=== PATIENT | male | born 1955 | race Caucasian/White ===

== ENCOUNTER 2021-12-30 00:20 | Day surgery (SDC) | payer OTHER, SELFPAY ==
[2021-12-21 14:22] VITALS: BMI 34.3
--- NOTE | 2021-12-29 21:27 | PM.HPGS ---
History of Present Illness History of Present Illness Consent: Risks, benefits, and alternatives have been discussed and questions answered. Patient agrees to proceed with procedure. Chief complaint: neoplasm screening Narrative: Enmanuel oCello is a 66 year old male referred for colon cancer screening. Review of Systems Review of Systems: All systems reviewed & are unremarkable except as noted in HPI and below PMFSH Family History Family History Sibling Family history of diabetes mellitus in first degree relative Family history of coronary artery disease Social History Social History Smoking status: Never smoker Second hand tobacco smoke exposure: No Alcohol intake: current Drinks per week: 6 Substance use: never Substance use type: does not use Living arrangements: with family Gender identity (if verbalized by the patient): Male Spiritual care concerns: No Meds Home Medications and Allergies Home Medications Medication Instructions Recorded Confirmed Type lisinopril 20 1 tablet PO DAILY #90 tablet 11/10/20 12/30/21 Rx mg-hydrochlorothiazide 25 mg tablet Allergies Allergy/AdvReac Type Severity Reaction Status Date / Time No Known Allergies Allergy Verified 12/30/21 06:22 Exam Resp: Auscultation: clear to auscultation bilaterally Cardio: Rate: regular rate Rhythm: regular rhythm GI: GI Palp: Yes Soft to palpation and No Tenderness to palpation present (GI) Assessment and Plan Assessment and plan (1) Colon cancer screening: Code(s): Z12.11 - Encounter for screening for malignant neoplasm of colon Status: Acute Assessment and Plan: Colonoscopy with possible biopsy or polypectomy or cautery or injection of substances.
[2021-12-30 06:13] VITALS: BP 142/69; PULSE 69; RESP 16; TEMP 36.2; O2SAT 99; BMI 34.7
[2021-12-30] MEDS: LACTATED RINGERS 1,000 ML 150 ML IV CONT (06:33)
--- NOTE | 2021-12-30 07:13 | P.PNAN_ITS ---
Anes - Initial Pre Proc Eval Procedure: Operation Date: 12/30/21 07:30 Proposed Procedures p Screening Colonoscopy - Sidney Nunez MD Date/Time: 12/30/21 07:13 Surgeon: Sidney uNnez MD Pre Op Diagnosis: neoplasm screening Patient Data Age: 66 Gender: M Height: 1.85 m Weight: 119.5 kg Last Vital Signs Temp 36.2 C L 12/30/21 06:13 Pulse 69 12/30/21 06:13 Resp 16 12/30/21 06:13 BP 142/69 H 12/30/21 06:13 Pulse Ox 99 12/30/21 06:13 Allergies Allergy/AdvReac Type Severity Reaction Status Date / Time No Known Allergies Allergy Verified 12/30/21 06:22 Home Medications Medication Instructions Recorded Confirmed Type lisinopril 20 1 tablet PO DAILY #90 tablet 11/10/20 12/30/21 Rx mg-hydrochlorothiazide 25 mg tablet Patient hx anesthesia problems: none Family hx anesthesia problems: none Results Review: All pre-operative results and documents have been reviewed as part of the pre-operative evaluation. [facility] Past Medical History Medical History (Updated 12/30/21 @ 07:15 by Gokul Villalta MD) Essential hypertension Obesity Pure hyperglyceridemia Family History Family History Sibling Family history of diabetes mellitus in first degree relative Family history of coronary artery disease Social History Social History Smoking status: Never smoker Second hand tobacco smoke exposure: No Alcohol intake: current Drinks per week: 6 Substance use: never Substance use type: does not use Living arrangements: with family Gender identity (if verbalized by the patient): Male Spiritual care concerns: No Anes - Eval Final PreProcedure Day of Procedure 12/30/21 07:13 Patient weight: obese Heart: regular rate and rhythm Lungs: clear to auscultation and normal air movement Airway: Mallampati scale class II Neurological: alert and oriented Last oral intake: >/= 8 hours ASA classification: III Emergent: no Anesthetic plan: proceed Anesthesia type and monitoring: general GIVS Results Review: All pre-operative results and documents have been reviewed as part of the pre-operative evaluation. Informed Consent: The patient's anesthetic plan and its attendant risks and benefits were discussed with the patient/family/POA. Questions were solicited and answers provided to the satisfaction of the patient/family/POA.
[2021-12-30 07:40] VITALS: BP 107/64; PULSE 60; O2SAT 100
[2021-12-30 07:50] VITALS: BP 112/70; PULSE 60; RESP 20; O2SAT 100
[2021-12-30 08:00] VITALS: BP 129/76; PULSE 59; RESP 18; O2SAT 100
== END 2021-12-30 08:07 | disposition home or self-care (01) ==
PROVIDERS: PCP Family Medicine; Visit Provider Internal Medicine Gastroenterology
PROC: 0DJD8ZZ Inspection of Lower Intestinal Tract, Via Natural or Artificial Opening Endoscopic (ICD-10-PCS; CPT 45378; principal; 2021-12-30 07:30)
DX: Z12.11 Encounter for screening for malignant neoplasm of colon (principal); D12.3 Benign neoplasm of transverse colon; I10 Essential (primary) hypertension; E66.9 Obesity, unspecified; Z68.34 Body mass index [BMI] 34.0-34.9, adult
CPT/HCPCS: 45385; 88305; J2704; J7120

== ENCOUNTER 2023-11-14 13:21 | Emergency (ER) | payer OTHER, SELFPAY ==
[2023-11-14] VITALS (61 sets, daily range): BP systolic 117–184; BP diastolic 64–89; PULSE 63–107; RESP 7–56; TEMP 36.6–36.8; O2SAT 97–100
--- NOTE | ~2023-11-14 | CT_ITS ---
EXAMINATION: CT thoracic lumbar wo con DATE: 11/14/2023 17:41 INDICATION: Back pain. Fall. TECHNIQUE: Computed tomography (CT) of the thoracic and lumbar spine was performed without intravenou s contrast. Automated exposure control and iterative reconstruction technique were employed. The dose -length product was 2311.96 mGy-cm. COMPARISON: None FINDINGS: CT THORACIC SPINE: There is a small left pleural effusion. There are old healed right rib fractures. There is mild chronic anterior wedging of T6-T11 vertebral bodies. There is mildly decreased disc hei ght at T3-T4. There is mild moderately decreased disc height from T4-T5 through T11-T12 with bridging endplate osteophytes, consistent with diffuse idiopathic skeletal hyperostosis (DISH). There is mult ilevel mild to moderate facet joint hypertrophy. There is mild neural foraminal stenosis at multiple levels bilaterally. There is mild central canal stenosis at T10-T11. CT LUMBAR SPINE: Bone alignment is normal. There are Schmorl's nodes at multiple levels. There is mil dly decreased disc height at L4-L5. Osseous central spinal canal is developmentally small. The follow ing disc levels are specifically discussed: L1-L2: The disc does not extend beyond the endplate margin. There is moderate right and mild left fac et joint osteoarthritis. There is no neural foraminal stenosis. There is no central canal stenosis. L2-L3: The disc is bulging. There is severe bilateral facet joint osteoarthritis. There is mild bilat eral neural foraminal stenosis. There is mild central canal stenosis. L3-L4: The disc is bulging. There is moderate right and severe left facet joint osteoarthritis. There is mild right and moderate left neural foraminal stenosis. There is mild central canal stenosis. L4-L5: The disc is bulging. There is severe bilateral facet joint osteoarthritis. There is moderate b ilateral neural foraminal stenosis. There is severe central canal stenosis. L5-S1: The disc is bulging. There is severe bilateral facet joint osteoarthritis. There is mild bilat eral neural foraminal stenosis. There is mild central canal stenosis. IMPRESSION: 1. No fracture. 2. Mild thoracic spondylosis and moderate lumbar spondylosis. 3. DISH. 4. Small left pleural effusion. Reviewed, dictated and finalized at location E. CONCIERGE
--- NOTE | ~2023-11-14 | CT_ITS ---
EXAMINATION: CT cervical spine wo con DATE: 11/14/2023 17:40 INDICATION: Head injury. TECHNIQUE: Computed tomography (CT) of the cervical spine was performed without intravenous contrast. Automated exposure control and iterative reconstruction technique were employed. The dose-length pro duct was 615.54 mGy-cm. COMPARISON: None FINDINGS: There is a small left pleural effusion. Bone alignment is normal. Vertebral body heights ar e normal. There is mildly decreased disc height from C2-C3 through C5-C6 and severely decreased disc height at C6-C7. There is developmental osseous central canal stenosis. The following disc levels are specifically discussed: C2-C3: There is severe bilateral uncovertebral joint osteoarthritis. There is severe bilateral facet joint osteoarthritis. There is mild bilateral neural foraminal stenosis. There is mild central canal stenosis. C3-C4: There is moderate right and severe left uncovertebral joint osteoarthritis. There is severe bi lateral facet joint osteoarthritis. There is mild right and moderate left neural foraminal stenosis. There is mild central canal stenosis. C4-C5: There is moderate bilateral uncovertebral joint osteoarthritis. There is moderate bilateral fa cet joint osteoarthritis. There is mild bilateral neural foraminal stenosis. There is mild central ca nal stenosis. C5-C6: There is moderate right and severe left uncovertebral joint osteoarthritis. There is moderate right and mild left facet joint osteoarthritis. There is mild bilateral neural foraminal stenosis. Th ere is mild central canal stenosis. C6-C7: There is severe bilateral uncovertebral joint osteoarthritis. There is moderate bilateral face t joint osteoarthritis. There is mild bilateral neural foraminal stenosis. There is mild central kandace l stenosis. C7-T1: There is mild bilateral uncovertebral joint osteoarthritis. There is severe bilateral facet gregorio int osteoarthritis. There is mild bilateral neural foraminal stenosis. There is mild central canal st enosis. IMPRESSION: 1. No fracture. 2. Severe cervical spondylosis. Reviewed, dictated and finalized at location E. BLOCKER
--- NOTE | ~2023-11-14 | CT_ITS ---
EXAMINATION: CT brain wo con DATE: 11/14/2023 17:40 INDICATION: Head injury. TECHNIQUE: Computed tomography (CT) of the head was performed without intravenous contrast. The mA wa s adjusted according to patient size. Iterative reconstruction technique was employed. The dose-lengt h product was 681.00 mGy-cm. COMPARISON: None FINDINGS: There are scattered areas of low attenuation in the cerebral white matter, which is within normal limits for the patient's age. There is a small infarct in right parietal lobe. There is no int racranial hemorrhage, acute infarction, or abnormal intracranial mass lesion. The ventricles are norm al in size. The orbits are normal. There is mucosal thickening in the paranasal sinuses. The mastoid air cells are normal. IMPRESSION: 1. 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 Reviewed, dictated and finalized at location E. SMITH
--- NOTE | ~2023-11-14 | CT_ITS ---
EXAMINATION:CT diagnostic chest wo con DATE: 11/14/2023 17:41 INDICATION: Left rib pain. Upper back pain. Fall. TECHNIQUE: Computed tomography (CT) of the chest was performed without intravenous contrast. Automate d exposure control and iterative reconstruction technique were employed. The dose-length product (DLP ) was 1009.36 mGy-cm. COMPARISON: None. FINDINGS: There is a small left pleural effusion. There is mild atelectasis bilaterally. The heart si ze is normal. There are coronary artery calcifications. No pericardial effusion. There is ectasia of ascending aorta measuring 4.6 cm. There are fractures of left first-ninth ribs. There are old healed right rib fractures. IMPRESSION: 1. Acute fractures of left first-ninth ribs. 2. Small left pleural effusion. 3. Ectasia of ascending aorta measuring 4.6 cm. Reviewed, dictated and finalized at location E. NDS CREW SUPERVISOR
--- NOTE | ~2023-11-14 | XR_ITS ---
EXAMINATION: XR hip RT 2V w AP pelvis DATE: 11/14/2023 17:45 INDICATION: Right hip pain. Fall. TECHNIQUE: An anteroposterior view of the pelvis and 2 views of right hip were obtained. COMPARISON: None. FINDINGS: Bone alignment is normal. No fracture. There is mild osteoarthritis of hips. There is moder ate lumbar spondylosis. IMPRESSION: 1. No fracture. 2. Mild osteoarthritis of the hips. Reviewed, dictated and finalized at location E. [facility]
--- NOTE | 2023-11-14 17:15 | ED.FALL ---
HPI - Fall General Chief Complaint: Fall Stated Complaint: FALL/ HIP PAIN Time Seen by Provider: 11/14/23 16:11 History of Present Illness HPI Narrative: Patient is a 68-year-old male presenting after falling on ice. Landed on his right hip and left shoulder. Complains of right hip pain when he tries to walk on it. States that he also has left-sided rib pain that goes into his left upper back. Thinks he struck his head but did not lose consciousness. No numbness or weakness. No difficulty breathing. No abdominal pain. Related Data Allergies Allergy/AdvReac Type Severity Reaction Status Date / Time No Known Allergies Allergy Verified 11/14/23 13:27 Review of Systems Review of Systems: All systems reviewed & are unremarkable except as noted in HPI and below PMFSH Past Medical History Medical History Essential hypertension HLD (hyperlipidemia) Obesity Pure hyperglyceridemia Family History Family History Sibling Family history of diabetes mellitus in first degree relative Family history of coronary artery disease Social History Social History Smoking status: Former smoker Second hand tobacco smoke exposure: No Alcohol intake: current Drinks per week: 12 Substance use: never Substance use type: does not use Living arrangements: with family Occupation/Education: occupation Gender identity (if verbalized by the patient): Male Spiritual care concerns: No Exam Narrative: GENERAL: Nontoxic, no acute distress HEAD: Normocephalic, atraumatic. EYES: PERRLA and EOMI. ENT: grossly unremarkable NECK: Supple. CHEST: Clear to auscultation. No respiratory distress. HEART: Regular rate and rhythm ABDOMEN: Soft, nontender, nondistended EXTREMITIES: R hip tender with palpation; R hip flexion limited 2/2 pain, neurovascularly intact SKIN: Warm, dry, no rash. NEURO: No focal deficits. Alert and oriented x3. PSYCH: Normal mood and affect. Course Vital Signs Vital signs: Vital Signs Temperature 98 F 11/14/23 13:21 Pulse Rate 63 11/14/23 13:21 Respiratory Rate 20 11/14/23 13:21 Pulse Oximetry 97 11/14/23 13:21 Oxygen Delivery Room Air 11/14/23 13:21 Temperature 98.3 F 11/14/23 16:42 Pulse Rate 74 11/15/23 00:00 Respiratory Rate 14 11/15/23 00:00 Blood Pressure 172/77 H 11/14/23 23:16 Pulse Oximetry 98 11/15/23 00:00 Oxygen Delivery Room Air 11/14/23 13:21 MDM - Fall MDM Narrative Medical decision making narrative: 68-year-old male presenting after slipping on ice. Vitals are stable. Exam remarkable for the above. CT brain and spine without acute injuries. CT chest shows fractures of the 1st through 9th left ribs with a small pleural effusion. No pneumothorax. X-ray of the right hip shows no fractures. Patient requires transfer to a trauma center. I spoke with Dr. Rayo at [facility] who has accepted him for ER to ER transfer. patient and his have been updated, they are agreeable with this plan. Differential Diagnosis Differential diagnosis: Likely other ( Fall, rib fractures, hip fracture) Medical Records Attestation: I reviewed the patient's medical records. Imaging Data Radiologist's impression: ITS Impressions Head CT 11/14/23 18:05 IMPRESSION: 1. 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 Cervical Spine CT 11/14/23 18:07 IMPRESSION: 1. No fracture. 2. Severe cervical spondylosis. Thoracic/Lumbar Spine CT 11/14/23 18:12 IMPRESSION: 1. No fracture. 2. Mild thoracic spondylosis and moderate lumbar spondylosis. 3. DISH. 4. Small left pleural effusion. Chest CT 11/14/23 18:21 IMPRESSION: 1. Acute fractures of left first-ninth ribs. 2. Small left pleural effusion. 3. Ectasia of ascending aorta measuring 4.6 cm.
[2023-11-14] MEDS: MORPHINE SULFATE (*CRX) 4 MG/ML INJ IV PUSH ×2 (17:24→19:59)
--- NOTE | 2023-11-14 21:27 | PC.NURSE ---
Report to Romelia CALLAHAN RN.
[2023-11-15] VITALS: PULSE 74; RESP 14; O2SAT 98
[2023-11-15] MEDS: MORPHINE SULFATE (*CRX) 4 MG/ML INJ IV PUSH (00:26)
== END 2023-11-15 00:40 | disposition short-term general hospital (02) ==
PROVIDERS: Emergency Provider Emergency Medicine; PCP Family Medicine
DX: S79.911A Unspecified injury of right hip, initial encounter (principal); S22.42XA Multiple fractures of ribs, left side, initial encounter for closed fracture; I10 Essential (primary) hypertension; E78.5 Hyperlipidemia, unspecified; E66.9 Obesity, unspecified; Z68.35 Body mass index [BMI] 35.0-35.9, adult; Z87.891 Personal history of nicotine dependence; M47.812 Spondylosis without myelopathy or radiculopathy, cervical region; M47.816 Spondylosis without myelopathy or radiculopathy, lumbar region; M47.814 Spondylosis without myelopathy or radiculopathy, thoracic region; M48.14 Ankylosing hyperostosis [Forestier], thoracic region; I77.819 Aortic ectasia, unspecified site; M16.0 Bilateral primary osteoarthritis of hip; W00.0XXA Fall on same level due to ice and snow, initial encounter
CPT/HCPCS: 70450; 71250; 72125; 72128; 72131; 73502; 96374; 96376; 99285; J2270

== ENCOUNTER 2025-06-25 16:45 | Emergency (ER) | payer OTHER, SELFPAY ==
[2025-06-25] VITALS (11 sets, daily range): BP systolic 112–123; BP diastolic 59–69; PULSE 58–73; RESP 12–16; TEMP 36.4–36.6; O2SAT 97–100
--- NOTE | ~2025-06-25 | XR_ITS ---
XR elbow LT min 3V Indication: Left elbow pain Procedure: 3 views left elbow Comparison: No prior studies for comparison. Findings: No fracture, subluxation or dislocation. Prominent enthesophyte originating from the olecranon process. There is ossific density at the medial humeral epicondyle, likely related to remote injury. Impression: 1: No acute fracture. Reviewed, dictated and finalized at location O. Impression: 1: No acute fracture.
--- NOTE | ~2025-06-25 | CT_ITS ---
EXAMINATION: CT BRAIN W/O DATE: 06/25/2025 17:34 INDICATION: Status post fall. Head injury. TECHNIQUE: Computed tomography (CT) of the head was performed without intravenous contrast. The dose-length product was 548.31 mGy-cm. Automated exposure control and iterative reconstruction technique were employed. COMPARISON: No prior studies for comparison. FINDINGS: There are scattered mild periventricular and subcortical white matter changes, most likely related to small vessel ischemic disease (microangiopathy). Small chronic left frontal lobe infarction. No ventriculomegaly or midline shift. Midline sagittal images demonstrate a normal corpus callosum, craniovertebral junction and sella turcica. Basilar cisterns are patent. There is mucosal thickening of the ethmoid sinuses. No significant mastoid effusion. No depressed skull fractures. IMPRESSION: 1. No acute intracranial abnormality. Reviewed, dictated and finalized at location O.
--- NOTE | ~2025-06-25 | XR_ITS ---
XR wrist LT min 3V Indication: Left wrist pain Procedure: 4 views left wrist Comparison: No prior studies for comparison. Findings: There is a small ossific density dorsal to the carpal bones on the lateral view, suspicious for triquetral fracture. 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 Impression: 1: Possible triquetral avulsion fracture, age indeterminate. Correlate for point tenderness. Reviewed, dictated and finalized at location O. Impression: 1: Possible triquetral avulsion fracture, age indeterminate. Correlate for poin t tenderness.
--- NOTE | ~2025-06-25 | CT_ITS ---
EXAMINATION: CT facial & cervical spine wo DATE: 06/25/2025 17:34 INDICATION: Status post fall. For head laceration. TECHNIQUE: Computed tomography (CT) of the maxillofacial region and cervical spine was performed without intravenous contrast. The dose-length product (DLP) was 548.31 mGy-cm. Automated exposure control and iterative reconstruction technique were employed. Automated exposure control and iterative reconstruction technique were employed. COMPARISON: None FINDINGS: MAXILLOFACIAL CT: There is left frontal soft tissue swelling with multiple punctate foreign bodies and subcutaneous gas, consistent with laceration. There is left periorbital soft tissue swelling. No post septal defects. No evidence for orbital blowout fracture. No significant mucosal thickening of the paranasal sinuses. No acute facial fracture. There is atherosclerosis of the carotid arteries. CERVICAL SPINE CT: Normal cervical alignment. There is moderate disc narrowing and endplate degenerative change at C6-7. No acute fracture, subluxation or dislocation. No evidence for perched facet. Craniovertebral junction is normal. Odontoid process is normal. There is multilevel uncinate hypertrophy. Lung apices are normal. IMPRESSION: 1. Left frontal/periorbital scalp swelling with associated punctate foreign bodies and subcutaneous gas, consistent with laceration. 2: No acute abnormality of the cervical spine or facial bones. Reviewed, dictated and finalized at location O. IMPRESSION: 1. Left frontal/periorbital scalp swelling with associated punctate foreign bod ies and subcutaneous gas, consistent with laceration. 2: No acute abnormality of the cervical spine or facial bones.
--- OUTSIDE RECORDS SUMMARY | 2025-06-25 16:47 | XMS_ITS | Encounter Summary ---
Author Organization [facility] Address [address] [place] [address] Care Team Providers Care Pump Servicer Name Role Phone Gonzalo Downey MD Unavailable [phone] Rayray Stringer MD Primary Care Provider [phone] Encounter Details Date Type Department Care Team (Late st Contact Info) Description 06/08/2022 Lab Requisition [facility] [address] [place] [id number] Chris Pyle MD [address] [place] [address] Social History Tobacco Use Types Packs/Day Years Used Date Smoking Tobacco: Never Smokeless Tobacco: Never Alcohol Use Standard Drinks/Week Comments Yes 4 (1 standard drink = 0.6 oz pur e alcohol) Sex and Gender Information Value Date Recorded Sex Assigned at Not on file Legal Sex Male 10:21 AM CDT Gender Identity Not on file Sexual Orientation Not on file documented as of this encounter Functional Status * Is person deaf or have serious hearing difficulty? Answer Date of Assessment Author No 07/28/2018 11:08 AM Frances Hendrickson APRN-CNP * Is person blind or have serious difficulty seeing? Answer Date of Assessment Author No 07/28/2018 11:08 AM Frances Hendrickson APRN-CNP * Does person have serious difficulty walking/climbing stairs? Answer Date of Assessment Author No 07/28/2018 11:08 AM CDT Frances Soler, NEUROLOGY TECHNICIAN-CARTOGRAPHIC ENGINEER * Does person have difficulty dressing/bathing? Answer Date of Assessment Author No 07/28/2018 11:08 AM CDT Frances Soler, NEUROLOGY TECHNICIAN-CARTOGRAPHIC ENGINEER * Does person have difficulty doing errands alone? Answer Date of Assessment Author No 07/28/2018 11:08 AM CDT Frances Soler, NEUROLOGY TECHNICIAN-CARTOGRAPHIC ENGINEER documented as of this encounter Mental Status * Does person have difficulty concentrating/remembering/making decisions? Answer Entry Date Author No 07/28/2018 11:08 AM CDT Frances Soler, NEUROLOGY TECHNICIAN-CARTOGRAPHIC ENGINEER documented in this encounter Plan of Treatment Not on file documented as of this encounter Procedures Procedure Name Priority Date/Time Associated Diagnosis Comments DERMATOPATHOLOGY Routine 06/08/2022 12:0 0 AM CDT documented in this encounter Results * DERMATOPATHOLOGY (06/08/2022 12:00 AM CDT) Case Report Dermatopathology Report Case: [id number] Authorizing Provider: Chris Pyle MD Collected: 06/08/2022 12:00 AM Ordering Location: [facility] Received: 06/08/2022 04:18 PM Pathologist: Juwan Walters MD Specimen: Skin, left malar cheek 2 2:23 PM CDT DERMATOPATHOLOGY LABORATORY Final Diagnosis Specimen A. SKIN, left malar cheek: SQUAMOUS CELL CARCINOMA, WELL DIFFERENTIATED (C44.329) OVERLYING CUTANEOUS HORN (L85.8) 2 2:23 PM CDT DERMATOPATHOLOGY LABORATORY at 1423 CDT Clinical History BCCA vs. SCCA. Path# [id number] 2 2:23 PM CDT DERMATOPATHOLOGY LABORATORY Gross Description Specimen A: Received is one formalin filled container labeled with the patient's name and designated left malar cheek. The specimen consists of a shave biopsy measuring [id number]. Jar 0. 2 2:23 PM CDT DERMATOPATHOLOGY LABORATORY Microscopic Description Specimen A. SKIN, left malar cheek: Arising in the epidermis and extending into the dermis there are irregularly shaped aggregates of keratinocytes showing evidence of premature cornification. There is a column of marked compact hyperkeratosis. 2 2:23 PM CDT DERMATOPATHOLOGY LABORATORY Disclaimer An external and internal positive and negative controls are appropriate for the histochemical, immunohistochemical and immunofluorescence stain(s) in this case (if any), except where stated explicitly. The performance characteristics of the stain(s) cited in this report were developed and its performance characteristic determined by the Dermatopathology Laboratory at [facility], directed by Dr. Bruce Walters. These tests need not be, and therefore are not, approved by the [place] Food and Drug Administration. The tests are used for clinical purposes. Billing Codes Specimen Charges Stain Charges 29499 1 2 2:23 PM CDT DERMATOPATHOLOGY LABORATORY Embedded Images 2 2:23 PM CDT DERMATOPATHOLOGY LABORATORY Pathology/Cytolog y TISSUE SPECIMEN FROM SKIN / Unknown 06/08/2022 06/08/2022 4:18 PM CDT us Chris Pyle MD LAB - PATHOLOGY/CYTOLOGY ORDER JOHN Final Result DERMATOPATHOLOGY LABORATORY [facility] - Department of Dermatology [facility] [address] [place] [address], [address] [phone] documented in this encounter Visit Diagnoses Not on filedocumented in this encounter Care Teams Pump Servicer Relationship Specialty Start Date End Date Rayray Stringer MD [address] [place] [address] PCP - General 01/01/22 [place] [address] [id number] Orthopedic Surgery 05/23/15 documented as of this encounter
--- NOTE | 2025-06-25 16:55 | ED_ITS ---
HPI - Wound/Laceration General Chief Complaint: Wound/Laceration <JACINDA Lynch Last Filed: 06/25/25 17:02> Stated Complaint: lac <JACINDA yLnch Last Filed: 06/25/25 17:02> Time Seen by Provider: 06/25/25 16:56 <JACINDA Lynch Last Filed: 06/25/25 17:02> Focused HPI: Patient is a 69 y/o male who presents to the ED with c/o fall. Patient's at bedside assisted in providing information. Reports patient tripped walking down concrete steps towards their pool and hit his face/forehead against the concrete retaining wall. Patient denies any LOC. He also sustained abrasions to his L wrist, L knee, blaise elbows. Complains of pain to his left wrist, left elbow, neck. He is not on any anticoagulation. Tetanus UTD. GENERAL: Well-appearing, obese with BMI of 34.0, and in no acute distress. HEAD: Normocephalic. Abrasions to L facial cheek, L periorbital region with s welling/erythema to L periorbital region. Large bandaging to forehead. NECK: Mild TTP over midline cervical region CHEST: Clear to auscultation. ?No respiratory distress. HEART: Regular rate and rhythm.? MSK: Small linear abrasion to L ventral wrist, minimal tenderness. Mild TTP to L lateral elbow. NEURO: ?Alert and oriented x3. Patient screened in triage and initial orders placed.? ?Additional care and disposition to be based upon?diagnostic testing and treatment. <JACINDA Lynch Last Filed: 06/25/25 17:02> Source: patient and family <JACINDA Lynch Last Filed: 06/25/25 17:02> Mode of arrival: ambulatory <JACINDA Lynch Last Filed: 06/25/25 17:02> Limitations: no limitations <JACINDA Lynch Last Filed: 06/25/25 17:02> History of Present Illness HPI narrative: Agree with the above triage note. <Maday Ludwig PA-C - Last Filed: 06/25/25 23:03> Related Data Allergies/Adverse Reactions: Allergies Allergy/AdvReac Type Severity Reaction Status Date / Time No Known Allergies Allergy Verified 06/25/25 16:49 <Julianna Angeles PA-C - Last Filed: 06/25/25 17:02> Review of Systems Review of Systems: All systems reviewed & are unremarkable except as noted in HPI and below <Maday Ludwig PA-C - Last Filed: 06/25/25 23:03> PMFSH Past Medical History Medical History: Medical History HLD (hyperlipidemia) Obesity Essential hypertension Pure hyperglyceridemia <Julianna Angeles PA-C - Last Filed: 06/25/25 17:02> Family History Family History: Family History Sibling Family history of diabetes mellitus in first degree relative Family history of coronary artery disease <Julianna Angeles PA-C - Last Filed: 06/25/25 17:02> Social History Social History: Social History Smoking status: Former smoker Second hand tobacco smoke exposure: No Alcohol intake: current Drinks per week: 12 Substance use: never Substance use type: does not use Living arrangements: with family Occupation/Education: occupation Gender identity (if verbalized by the patient): Male Spiritual care concerns: No <Julianna Angeles PA-C - Last Filed: 06/25/25 17:02> Exam Narrative: GENERAL: Well-appearing, well-nourished, and in no acute distress. HEAD: Normocephalic EYES: PERRLA and EOMI. 6 cm large gaping laceration to the left eyebrow, bleeding controlled. Exposed subcutaneous tissue, does not appear to have any muscle involvement. No active bleeding. Visible vasculature is intact. Small scattered pieces of debris at the base of the wound. Surrounding ecchymosis and edema that extends to the left upper lid with no apparent ocular involvement or ocular pain. Patient is able to raise eyebrows and frown ENT: Nares clear, no rhinorrhea or epistaxis. Mucous membranes moist. NECK: No midline cervical spinous tenderness, crepitus, step-offs or deformities BACK: No midline thoracolumbar spinous tenderness, crepitus, step-offs or deformities CHEST: Clear to auscultation. No respiratory distress. No tenderness to chest wall HEART: Regular rate and rhythm. No murmur heard. Normal peripheral pulses. ABDOMEN: Soft, nontender, nondistended, normal active bowel sounds. EXTREMITIES: LUE: Superficial abrasion to the ventral aspect of the left wrist with no active bleeding, no significant tenderness to palpation of the forearm, wrist or hand. Mild tenderness to the proximal radius over the elbow with minimal amount of edema. No obvious deformity. Full active passive range of motion of all extremities with no tenderness remainder of extremities. Radial and DP pulses are 2+. Sensation intact throughout. SKIN: Superficial abrasions to the left tib-fib with no active bleeding, deep structures or foreign bodies visualized. No tenderness to extremities. NEURO: No focal deficits. Alert and oriented x3 <Maday Ludwig PA-C - Last Filed: 06/25/25 23:03> Course Vital Signs Vital signs: Vital Signs Temperature 97.5 F L 06/25/25 16:50 Pulse Rate 73 06/25/25 16:50 Respiratory Rate 16 06/25/25 16:50 Blood Pressure 112/59 L 06/25/25 16:50 Pulse Oximetry 97 06/25/25 16:50 Temperature 97.5 F L 06/25/25 16:50 Pulse Rate 73 06/25/25 16:50 Respiratory Rate 16 06/25/25 16:50 Blood Pressure 112/59 L 06/25/25 16:50 Pulse Oximetry 97 06/25/25 16:50 <Julianna Angeles PA-C - Last Filed: 06/25/25 17:02> Vital Signs Temperature 97.5 F L 06/25/25 16:50 Pulse Rate 73 06/25/25 16:50 Respiratory Rate 16 06/25/25 16:50 Blood Pressure 112/59 L 06/25/25 16:50 Pulse Oximetry 97 06/25/25 16:50 Temperature 97.5 F L 06/25/25 16:50 Pulse Rate 73 06/25/25 16:50 Respiratory Rate 16 06/25/25 16:50 Blood Pressure 112/59 L 06/25/25 16:50 Pulse Oximetry 97 06/25/25 16:50 <JACINDA Patten Last Filed: 06/25/25 23:03> Procedures Laceration Laceration 1: Date: 06/25/25 <JACINDA Patten Last Filed: 06/25/25 23:03> Time: 23:02 <JACINDA Patten Last Filed: 06/25/25 23:03> Site: face <JACINDA Patten Last Filed: 06/25/25 23:03> Side (If applicable): left <JACINDA Patten Last Filed: 06/25/25 23:03> Size (cm): 6 <JACINDA Patten Last Filed: 06/25/25 23:03> Description: irregular <JACINDA Patten Last Filed: 06/25/25 23:03> Local Anesthetic: lidocaine 1% and with epi <JACINDA Patten Last Filed: 06/25/25 23:03> Amount of anesthesia used (mL): 8 <JACINDA Patten Last Filed: 06/25/25 23:03> Pre-repair: wound explored, irrigated, irrigated extensively and deep structures intact <JACINDA Patten Last Filed: 06/25/25 23:03> ====== Skin Level ======: Skin layer closed with: nylon <JACINDA Patten Last Filed: 06/25/25 23:03> Size (cm): 5-0 <JACINDA Patten Last Filed: 06/25/25 23:03> Number of sutures: 6 <JACINDA Patten Last Filed: 06/25/25 23:03> Technique: simple, interrupted <Maday Ludwig PA-C - Last Filed: 06/25/25 23:03> ====== Subcutaneous Layer ======: Subcutaneous layer closed with: vicryl <JACINDA Patten Last Filed: 06/25/25 23:03> Size: 5-0 <JACINDA Patten Last Filed: 06/25/25 23:03> Number of sutures: 2 <JACINDA Patten Last Filed: 06/25/25 23:03> Technique: simple, interrupted <JACINDA Patten Last Filed: 06/25/25 23:03> ====== Muscle Layer ======: ====== Tendon Layer ======: MDM - Wound/Laceration MDM Narrative Medical decision making narrative: MSE by JOESPH in triage. <JACINDA Lynch Last Filed: 06/25/25 17:02> MSE by JOESPH in triage. 69-year-old male presents emergency department for a ground level mechanical fall that occurred prior to arrival. Patient did hit his head but did not lose consciousness. He is not anticoagulated. Vitals are stable. Exam is notable for the above. Tdap is up to date. CT brain shows no acute intracranial abnormality. CT cervical spine and facial bones shows no acute abnormality of the cervical spine and facial bones. There is a left frontal/periorbital scalp swelling with associated punctate foreign bodies and subcutaneous gas consistent with patient's laceration. X-ray of the left elbow shows no acute fracture. X- ray of the left for shows possible triquetral avulsion fracture, age indeterminate. Patient has no tenderness whatsoever to this region, likely not acute. Patient and at bedside updated on results. Wounds cleansed and dressed by nursing staff. Large laceration to the left eyebrow was anesthetized and irrigated extensively with normal saline with debris removed. Laceration closed as noted above in procedure note. Patient tolerated procedure well. Given the depth and contamination of laceration, patient started on Keflex. Discussed wound care, close follow-up with PCP, suture removal and strict ED return precautions. Patient and his are agreeable with the plan verbalized understanding. Discharged in stable condition. <Maday Ludwig PA-C - Last Filed: 06/25/25 23:03> Discharge Plan Discharge Clinical Impression: Laceration, Abrasion Head injury Qualifiers: Encounter type: initial encounter Qualified Code(s): S09.90XA - Unspecified injury of head, initial encounter Elbow sprain Qualifiers: Encounter type: initial encounter Laterality: left Qualified Code(s): S53.402A - Unspecified sprain of left elbow, initial encounter <JACINDA Lynch Last Filed: 06/25/25 17:02> Patient Disposition: Home <JACINDA Lynch Last Filed: 06/25/25 17:02> Condition: Stable <JACINDA Lynch Last Filed: 06/25/25 17:02> Instructions: Antibiotic Form, Care For Your Stitches (DC), Laceration (ED), Head Injury (DC), Abrasion (ED) <JACINDA Lynch Last Filed: 06/25/25 17:02> Additional Instructions: Please keep your wounds clean and dry. Take the antibiotics as directed. Have the stitches removed in 7 days by her primary care provider, urgent care or emergency department. Return to the emergency department if you develop surrounding redness, drainage, fever to any of your wounds or you develop altered mental status, seizures or other concerning symptoms. <JACINDA Lynch Last Filed: 06/25/25 17:02> Patient Language: Malian <JACINDA Lynch Last Filed: 06/25/25 17:02> Prescriptions: New cephalexin 500 mg capsule 500 mg PO Q6H Qty: 28 0RF No Action lisinopril 30 mg tablet 30 mg PO DAILY Qty: 90 2RF hydrochlorothiazide 25 mg tablet 25 mg PO DAILY Qty: 90 3RF <JACINDA Lynch Last Filed: 06/25/25 17:02> Follow-up/Referrals: Rayray Stringer MD [Primary Care Provider, Family Practice] <Julianna Angeles PA-C - Last Filed: 06/25/25 17:02>
[2025-06-25] MEDS: ACETAMINOPHEN 500 MG TABLET 1000 MG PO (23:17)
[2025-06-25] MEDS: CEPHALEXIN 500 MG CAPSULE PO (23:17)
== END 2025-06-25 23:24 | disposition home or self-care (01) ==
PROVIDERS: Emergency Provider Physician Assistant; PCP Family Medicine
DX: S01.122A Laceration with foreign body of left eyelid and periocular area, initial encounter (principal); S53.402A Unspecified sprain of left elbow, initial encounter; S80.812A Abrasion, left lower leg, initial encounter; S60.812A Abrasion of left wrist, initial encounter; E78.5 Hyperlipidemia, unspecified; E66.9 Obesity, unspecified; Z68.34 Body mass index [BMI] 34.0-34.9, adult; I10 Essential (primary) hypertension; Z87.891 Personal history of nicotine dependence; Z79.899 Other long term (current) drug therapy; W10.8XXA Fall (on) (from) other stairs and steps, initial encounter
CPT/HCPCS: 12053; 70450; 70486; 72125; 73080; 73110; 99284; A9270